=== PATIENT | female | born 1990 | race African-American/Black ===

== ENCOUNTER 2019-04-14 20:50 | Emergency (ER) | payer MEDICARE, MEDICAID ==
[~2019-04-14] VITALS: Ht 154.9 cm; Wt 74.4 kg
[~2019-04-14 20:50] MED LIST: DENIES HOME MEDS
[2019-04-14 21:57] VITALS: BP 125/79
[2019-04-14 22:29] LABS: Basophils # (auto) 0 uL; Eosinophils # (auto) 0 uL; Lymphocytes # (auto) 2.2 uL; Monocytes # (auto) 0.3 uL; Neutrophils # (auto) 2.1 uL; White Blood Cell 4.7 10^3/uL (4.4-10.8)
[2019-04-14 22:32] LABS: Basophils % (auto) 0.5 % (0.0-2.0); Hematocrit 32.6 % (36.0-46.0); Hemoglobin 10.2 g/dL (12.2-16.2); Lymphocytes % (auto) 46.5 % (10.0-50.0); Mean Corpuscular Hemoglobin 23.7 pg (28.0-32.0); Mean Corpuscular Hgb Conc. 31.3 g/dL (32.0-36.0); Mean Corpuscular Volume 75.8 fL (80.0-100.0); Monocytes % (auto) 7.1 % (0.0-12.0); Neutrophils % (auto) 44.9 % (37.0-80.0); Nucleated Red Blood Cells % 0.1 %; Red Blood Cells 4.31 10^6/uL (4.0-5.20); Red Cell Distribution Width 17.6 % (11.8-14.3)
[2019-04-14 22:36] LABS: Albumin 3.6 g/dL (3.4-5.0); Calcium 9.2 mg/dL (8.5-10.1); Platelet Count (auto) 455 10^3/uL (140-450); Potassium 3.4 mmol/L (3.5-5.1)
[2019-04-14 22:38] LABS: BUN/Creatinine Ratio 6.3
[2019-04-14 22:41] LABS: Bilirubin, Total 0.5 mg/dL (0.2-1.0); Total Protein 7.4 g/dL (6.4-8.2)
[2019-04-14 23:05] LABS: Urine WBC None Seen /hpf (0 - 5)
[2019-04-14 23:25] LABS: Urine Bacteria NONE SEEN /hpf (None Seen); Urine Blood 2+ /uL (Negative); Urine Mucus MANY (None Seen); Urine Specific Gravity 1.031 (1.001-1.035)
== END 2019-04-15 00:27 | disposition left against medical advice (07) ==
LOC: ER 20:52
DX: R10.10 Upper abdominal pain, unspecified (principal); Z53.21 Procedure and treatment not carried out due to patient leaving prior to being seen by health care provider
CPT/HCPCS: 36415; 80053; 81001; 81025; 83690; 85025